=== PATIENT | male | born 1935 | race Caucasian/White ===

== ENCOUNTER 2017-07-12 22:32 | Inpatient (IN) | payer MEDICARE, OTHER ==
[~2017-07-12] VITALS: Ht 167.6 cm; Wt 72.6 kg
[2017-07-12] MEDS ORDERED: ASPI81TA31 PO (22:55)
[2017-07-12] MEDS ORDERED: BACL10TA PO (22:55)
[2017-07-12] MEDS ORDERED: ATOR20TA PO (22:55)
[2017-07-12] MEDS ORDERED: CARV6.252 PO (22:55)
[2017-07-12] MEDS ORDERED: FURO40TA5 PO (22:55)
[2017-07-12] MEDS ORDERED: METH5TAB2 PO ×2 (22:55)
[2017-07-12] MEDS ORDERED: LISI-603 PO (22:55)
[2017-07-12] MEDS ORDERED: POLY119P2 PO (22:55)
[2017-07-12] MEDS ORDERED: ALBU18HF2 INH (22:55)
[2017-07-12] MEDS ORDERED: OMEP20CA10 PO (22:55)
[2017-07-12] MEDS ORDERED: MAGN400C PO (22:55)
[2017-07-12] MEDS ORDERED: FERR325T28 PO (22:55)
[2017-07-12] MEDS ORDERED: CALC650T29 PO (22:55)
[2017-07-12] MEDS ORDERED: ALEN70TA45 PO (22:55)
[2017-07-12] MEDS ORDERED: DOCU100C36 PO (22:55)
--- NOTE | 2017-07-12 23:00 | NUR ---
pt reports pulling on dry skin on right lateral heel - area presents with dime sized wound - pinkish superficial area noted - sensative to touch - dressing placed
[2017-07-12] MEDS ORDERED: ONDANSETRON 4 MG/2 ML VIAL IV ONE (23:30)
[2017-07-12 23:53] LABS: BASOPHILS # (AUTO) 0.1 K/uL (0.0-8.0); BASOPHILS % (AUTO) 0.7 % (0.0-2.0); EOSINOPHILS # (AUTO) 0.2 K/uL (0.0-0.7); EOSINOPHILS % (AUTO) 1.9 % (0.0-7.0); HEMATOCRIT 34.5 % (36.7-47.1); HEMOGLOBIN 11.4 g/dL (12.5-16.3); LYMPHOCYTES # (AUTO) 2.3 K/uL (20.0-40.0); LYMPHOCYTES % (AUTO) 24.5 % (20.5-51.5); MEAN CORPUSCULAR HEMOGLOBIN 31.5 uug (23.8-33.4); MEAN CORPUSCULAR HGB CONC 33 g/dL (32.5-36.3); MEAN CORPUSCULAR VOLUME 95.2 fL (73.0-96.2); MONOCYTES # (AUTO) 0.9 K/uL (2.0-10.0); MONOCYTES % (AUTO) 9.1 % (0.0-11.0); NEUTROPHILS % (AUTO) 63.8 % (38.5-71.5); PLATELET COUNT (AUTO) 235 K/uL (152-348); RED BLOOD CELL COUNT(AUTO) 3.63 MIL/uL (4.06-5.63); WHITE BLOOD COUNT (AUTO) 9.4 K/uL (3.6-10.2)
[2017-07-13] LABS: ALANINE AMINOTRANSFERASE 16 U/L (16-63); ALKALINE PHOSPHATASE 88 U/L (50-136); ASPARTATE AMINOTRANSFERASE 22 U/L (15-37); BILIRUBIN,DIRECT 0.1 mg/dL (0.0-0.2); BILIRUBIN,TOTAL 0.5 mg/dL (0.2-1.0); CARBON DIOXIDE 31 mmol/L (21-32); CHLORIDE 107 mmol/L (98-107); CREATININE 1.9 mg/dL (0.6-1.3); GLUCOSE 109 mg/dL (74-106); LIPASE 91 U/L (73-393); POTASSIUM 4.1 mmol/L (3.5-5.1); UREA NITROGEN, BLOOD 37 mg/dL (7-18)
[2017-07-13 00:35] LABS: *BILIRUBIN,URIN NEGATIVE (NEGATIVE); *BLOOD, URINE NEGATIVE (NEGATIVE); *CLARITY,URINE CLEAR (CLEAR); *COLOR,URINE YELLOW (YELLOW); *KETONES,URINE NEGATIVE (NEGATIVE); *PROTEIN,URINE NEGATIVE (NEGATIVE); *UROBILINOGEN,URINE 0.2 E.U./dl (NORMAL); LEUKOCYTE ESTERASE ,URINE NEGATIVE (NEGATIVE); NITRITE, URINE NEGATIVE (NEGATIVE); PH,URINE 5.5 (5.0-8.0); UGLUCOSE NEGATIVE (NEGATIVE)
[2017-07-13] MEDS ORDERED: IV NORMAL SALINE 250 ML BAG IV ONE (00:45)
[2017-07-13] MEDS ORDERED: ONDANSETRON 4 MG/2 ML VIAL ONE (00:46)
[2017-07-13 00:59] LABS: BACTERIA,URINE NONE SEEN /HPF (NONE SEEN); RBC,URINE 0-3 /HPF (0-3); SQUAMOUS EPITHELIAL CELL,UR FEW /HPF (NONE SEEN); WBC,URINE 0-3 /HPF (0-3)
[2017-07-13] MEDS ORDERED: IV 1/2NS 1000 ML 1,000 ML IV PRN (01:22)
[2017-07-13] MEDS ORDERED: Z GUARD REMEDY PASTE 57 GM TUBE TOP PRN (01:30)
[2017-07-13] MEDS ORDERED: ONDANSETRON 4 MG/2 ML VIAL IV PRN (01:30)
[2017-07-13] MEDS ORDERED: ACETAMINOPHEN 325 MG TABLET PO PRN (01:30)
[2017-07-13] MEDS ORDERED: ALBUTEROL SULFATE 8 GM HFA.AER.AD INH PRN (01:30)
[2017-07-13] MEDS ORDERED: MAGNESIUM HYDROXIDE 30 ML LIQUID UDC PO PRN (01:30)
--- NOTE | 2017-07-13 02:30 | NUR ---
Joel redding in ED - 07/13/17 at 0247 by [id number] NOZZLE WORKER evaluated pt., not placing pt on hold
--- NOTE | 2017-07-13 02:40 | NUR ---
pt report provided to nurse Valentin - pt continues restful - vs and ns same - all sites consistant
[2017-07-13 04:00] VITALS: BP 126/73
--- NOTE | 2017-07-13 04:35 | NUR ---
CLINICAL NURSING NOTES: pt is newly admitted from ED with a Dx: Nausea and FLORIN. A&O X 4, on 2 L O2 NC, sating well. VSS. denies pain. 0.45% NS is running @ 75 ml/hr. pt is able to walk with walker and one person assist. skin checked( see wound documentation). fall risk precautions are implemented. will cont to monitor for any changes in the patient's condition.
--- NOTE | 2017-07-13 06:42 | NUR ---
END OF SHIFT SUMMERY: Pt is resting in bed, no acute distress noted. denies pain. no episodes of N/V . fall precautions are implemented. all needs attended. Will cont to monitor and endorse pt to the next nurse.
[2017-07-13] MEDS: CARVEDILOL 6.25 MG TABLET PO SCH ×2 (09:00→17:56)
[2017-07-13] MEDS ORDERED: Medication Not On Formulary EA (Omeprazole 20 MG) PO SCH (09:00)
[2017-07-13] MEDS ORDERED: MAGNESIUM OXIDE 400 MG TABLET PO SCH (09:17)
[2017-07-13] MEDS: BACLOFEN 10 MG TABLET PO SCH ×3 (09:59→17:45)
[2017-07-13] MEDS: CALCIUM CARBONATE 600 MG TABLET PO SCH ×2 (09:59→17:45)
[2017-07-13] MEDS: ASPIRIN 81 MG TAB.CHEW PO SCH (10:00)
[2017-07-13] MEDS: PANTOPRAZOLE SODIUM 40 MG TABLET.DR PO SCH (10:41)
[2017-07-13 11:12] VITALS: BP 106/46
--- NOTE | 2017-07-13 12:12 | NUR ---
SBAR report received near bedside, board updated. Pt assessed to be in no acute distress of SOB at this time, no difficulty breathing on 2 L O2 NC. Pt alert and oriented x4. Pt compliant with all routine morning medications. Plan for today discussed. Visited with nurse case manager, and daughter Edna spoken to via phone r/t plan of care. Call light and personal items within reach. All safety and comfort measures met. Will continue to monitor.
--- NOTE | 2017-07-13 12:57 | NUR ---
Pt seen by MD, no new orders. Plan of care discussed with Pt.
[2017-07-13] MEDS: METHADONE HCL 10 MG TABLET PO SCH ×2 (13:05→20:47)
[2017-07-13] MEDS ORDERED: FUROSEMIDE 40 MG/4 ML VIAL IV ONE (13:15)
[2017-07-13 13:36] LABS: BASOPHILS # (AUTO) 0.1 K/uL (0.0-8.0); BASOPHILS % (AUTO) 0.9 % (0.0-2.0); EOSINOPHILS # (AUTO) 0.2 K/uL (0.0-0.7); HEMATOCRIT 33.1 % (36.7-47.1); LYMPHOCYTES # (AUTO) 1.9 K/uL (20.0-40.0); LYMPHOCYTES % (AUTO) 23.1 % (20.5-51.5); MEAN CORPUSCULAR HEMOGLOBIN 31.7 uug (23.8-33.4); MEAN CORPUSCULAR HGB CONC 33 g/dL (32.5-36.3); MEAN CORPUSCULAR VOLUME 95.1 fL (73.0-96.2); MONOCYTES # (AUTO) 0.8 K/uL (2.0-10.0); MONOCYTES % (AUTO) 9.4 % (0.0-11.0); NEUTROPHILS # (AUTO) 5.3 K/uL (1.8-8.9); NEUTROPHILS % (AUTO) 63.6 % (38.5-71.5); PLATELET COUNT (AUTO) 214 K/uL (152-348); RED BLOOD CELL COUNT(AUTO) 3.48 MIL/uL (4.06-5.63); WHITE BLOOD COUNT (AUTO) 8.3 K/uL (3.6-10.2)
[2017-07-13 13:39] LABS: CARBON DIOXIDE 31 mmol/L (21-32); CHLORIDE 105 mmol/L (98-107); CREATININE 1.7 mg/dL (0.6-1.3); GLUCOSE 116 mg/dL (74-106); POTASSIUM 4.1 mmol/L (3.5-5.1); UREA NITROGEN, BLOOD 33 mg/dL (7-18)
[2017-07-13] MEDS: HEPARIN SODIUM,PORCINE 5,000 UNITS/ML VIAL SQ SCH ×2 (14:29→20:48)
[2017-07-13 15:19] VITALS: BP 117/78
[2017-07-13 20:38] VITALS: BP 105/55
[2017-07-13] MEDS: ATORVASTATIN 20 MG TABLET PO SCH (20:39)
[2017-07-13] MEDS: DOCUSATE SODIUM 100 MG CAPSULE PO SCH (20:39)
[2017-07-14] MEDS: HYDROCODONE/APAP 5-325MG TABLET PO PRN ×2 (01:18→12:44)
--- NOTE | 2017-07-14 05:20 | NUR ---
NORCO WAS GIVEN FOR C/O RIGHT FOOT PAIN, AND WAS EFFECTIVE.
[2017-07-14] MEDS: PANTOPRAZOLE SODIUM 40 MG TABLET.DR PO SCH (06:04)
[2017-07-14 06:55] VITALS: BP 127/58
[2017-07-14 06:59] LABS: BASOPHILS # (AUTO) 0.1 K/uL (0.0-8.0); BASOPHILS % (AUTO) 0.7 % (0.0-2.0); EOSINOPHILS # (AUTO) 0.5 K/uL (0.0-0.7); EOSINOPHILS % (AUTO) 5.5 % (0.0-7.0); HEMATOCRIT 29.8 % (36.7-47.1); MEAN CORPUSCULAR HEMOGLOBIN 31.8 uug (23.8-33.4); MEAN CORPUSCULAR HGB CONC 34 g/dL (32.5-36.3); MEAN CORPUSCULAR VOLUME 94.9 fL (73.0-96.2); MONOCYTES # (AUTO) 0.8 K/uL (2.0-10.0); MONOCYTES % (AUTO) 9.6 % (0.0-11.0); NEUTROPHILS # (AUTO) 4.2 K/uL (1.8-8.9); NEUTROPHILS % (AUTO) 49.2 % (38.5-71.5); PLATELET COUNT (AUTO) 183 K/uL (152-348); RED BLOOD CELL COUNT(AUTO) 3.14 MIL/uL (4.06-5.63); WHITE BLOOD COUNT (AUTO) 8.6 K/uL (3.6-10.2)
[2017-07-14 07:12] LABS: CARBON DIOXIDE 33 mmol/L (21-32); CHLORIDE 106 mmol/L (98-107); CHOLESTEROL 100 mg/dL (<200); CREATININE 1.5 mg/dL (0.6-1.3); GLUCOSE 92 mg/dL (74-106); HDL CHOLESTEROL 40 mg/dL (40-60); MAGNESIUM 2.1 mg/dL (1.8-2.4); PHOSPHOROUS 3.4 mg/dL (2.5-4.9); POTASSIUM 4.2 mmol/L (3.5-5.1); TRIGLYCERIDES 92 MG/DL (30-150); UREA NITROGEN, BLOOD 33 mg/dL (7-18)
[2017-07-14 07:30] LABS: THYROID STIMULATING HORMONE 1.425 mIU/mL (0.358-3.740)
--- NOTE | 2017-07-14 08:30 | NUR ---
AWAKE COOPERATE WELL NO PAIN OR SOB ,ON FALL AND ASPIRATION PRECAUTION BED ALARM ON AND CALL PATEL IN REACH
[2017-07-14] MEDS: CALCIUM CARBONATE 600 MG TABLET PO SCH ×2 (08:51→17:01)
[2017-07-14] MEDS: BACLOFEN 10 MG TABLET PO SCH ×3 (08:51→17:01)
[2017-07-14] MEDS: METHADONE HCL 10 MG TABLET PO SCH ×2 (08:52→21:05)
[2017-07-14] MEDS: ASPIRIN 81 MG TAB.CHEW PO SCH (08:53)
[2017-07-14] MEDS: CARVEDILOL 6.25 MG TABLET PO SCH ×2 (08:53→17:00)
[2017-07-14] MEDS: HEPARIN SODIUM,PORCINE 5,000 UNITS/ML VIAL SQ SCH ×2 (08:55→21:07)
[2017-07-14 11:40] VITALS: BP 120/60
--- NOTE | 2017-07-14 12:00 | NUR ---
DR RAINES SEE PATIENT AND LAB RESULT THIS AM
--- NOTE | 2017-07-14 14:00 | NUR ---
DR GUIDO Bryant WAS CALL REGARDING PATIENT REQUEST ANXIETY MED AND ORDER RECIEVED
[2017-07-14] MEDS ORDERED: ALPRAZOLAM 0.25 MG TABLET PO PRN (14:15)
[2017-07-14 15:42] VITALS: BP 105/53
--- NOTE | 2017-07-14 17:30 | NUR ---
STABLE HEMODYNAMIC STATUS ,PAIN UNDER CONTROL SAFETY MEASURE PROVIDED CALL LIGHT IN REACH AND BED ALARM ON
[2017-07-14] MEDS: ALBUTEROL SULFATE 2.5 MG/3 ML NEBU NEB PRN (19:25)
--- NOTE | 2017-07-14 19:30 | NUR ---
PT ALERT AND ORIENTED IN BED. O2 2L NC WNL. NO DISTRESS NOTED. IV INTACT. CLEAN AND DRY. SAFETY MAINTAINED. CALL LIGHT WITHIN REACH. ALL NEEDS MET. WILL CONTINUE TO MONITOR.
[2017-07-14 20:47] VITALS: BP 135/47
[2017-07-14] MEDS: DOCUSATE SODIUM 100 MG CAPSULE PO SCH (21:04)
[2017-07-14] MEDS: ATORVASTATIN 20 MG TABLET PO SCH (21:05)
[2017-07-15 04:36] VITALS: BP 144/74
[2017-07-15] MEDS ORDERED: ALENDRONATE SODIUM 70 MG TABLET PO SCH (06:00)
[2017-07-15] MEDS: PANTOPRAZOLE SODIUM 40 MG TABLET.DR PO SCH (06:04)
[2017-07-15] MEDS: HYDROCODONE/APAP 5-325MG TABLET PO PRN (06:31)
--- NOTE | 2017-07-15 06:39 | NUR ---
PT ALERT AND ORIENTED IN BED. HOB ELEVATED. PT ON 2L NC. PAIN MEDICATION GIVEN ORDERED FOR BACK PAIN. SAFETY MAINTAINED. CALL LIGHT WITHIN REACH.
[2017-07-15] MEDS: ALBUTEROL SULFATE 2.5 MG/3 ML NEBU NEB PRN ×2 (06:55→14:03)
--- NOTE | 2017-07-15 08:30 | NUR ---
AWAKE ALERT COOPERATE WELL NO PAIN OR SOB EAT BREAKFAST WELL ON FALL PRECAUTION BED ALARM ON AND CALL LIGHT IN REACH
[2017-07-15] MEDS: BACLOFEN 10 MG TABLET PO SCH ×3 (08:34→16:37)
[2017-07-15] MEDS: ASPIRIN 81 MG TAB.CHEW PO SCH (08:35)
[2017-07-15] MEDS: CALCIUM CARBONATE 600 MG TABLET PO SCH ×2 (08:35→16:36)
[2017-07-15] MEDS: METHADONE HCL 10 MG TABLET PO SCH ×2 (08:35→20:57)
[2017-07-15] MEDS: CARVEDILOL 6.25 MG TABLET PO SCH ×2 (08:35→16:37)
[2017-07-15] MEDS: HEPARIN SODIUM,PORCINE 5,000 UNITS/ML VIAL SQ SCH ×2 (08:37→21:11)
[2017-07-15 11:32] VITALS: BP 120/54
[2017-07-15] MEDS: methylPREDNISolone SOD SUCC 40 MG/ML VIAL IV SCH ×2 (12:14→23:10)
[2017-07-15] MEDS: AZITHROMYCIN 250 MG TABLET PO SCH (13:45)
[2017-07-15 15:53] VITALS: BP 144/54
--- NOTE | 2017-07-15 18:00 | NUR ---
HEMODYNAMIC STATUS STABLE NO ACUTE DISTRESS SAFETY MEASURE PROVIDED CALL LIGHT IN REACH
--- NOTE | 2017-07-15 19:40 | NUR ---
Received patient in bed, on semi fowlers position and was watching TV. Verbally responsive and bale to make needs known. Vital signs taken and recorded WNL. Breathing even and nonlabored. Pain level of 5/10, will give pain med. Heplock intact and no s/s of redness or dislodged. Safety measures provided and on bed alarm. Reminded pt. to use call light, and placed it within his reach. Will monitor the patient.
[2017-07-15 20:18] VITALS: BP 124/50
[2017-07-15] MEDS: DOCUSATE SODIUM 100 MG CAPSULE PO SCH (20:51)
[2017-07-15] MEDS: ATORVASTATIN 20 MG TABLET PO SCH (20:51)
[2017-07-15] MEDS: MUPIROCIN 2% OINT 22 GM TUBE TP SCH (21:00)
[2017-07-16 00:10] VITALS: BP 136/62
[2017-07-16 04:00] VITALS: BP 126/61
[2017-07-16] MEDS: methylPREDNISolone SOD SUCC 40 MG/ML VIAL IV SCH ×2 (05:51→13:04)
[2017-07-16 06:13] LABS: HEMATOCRIT 31.6 % (36.7-47.1); HEMOGLOBIN 10.5 g/dL (12.5-16.3); LYMPHOCYTES # (AUTO) 0.7 K/uL (20.0-40.0); LYMPHOCYTES % (AUTO) 9.8 % (20.5-51.5); MEAN CORPUSCULAR HEMOGLOBIN 31.7 uug (23.8-33.4); MEAN CORPUSCULAR HGB CONC 33 g/dL (32.5-36.3); MEAN CORPUSCULAR VOLUME 95.4 fL (73.0-96.2); MONOCYTES # (AUTO) 0.1 K/uL (2.0-10.0); NEUTROPHILS # (AUTO) 6.1 K/uL (1.8-8.9); NEUTROPHILS % (AUTO) 89.2 % (38.5-71.5); PLATELET COUNT (AUTO) 189 K/uL (152-348); RED BLOOD CELL COUNT(AUTO) 3.31 MIL/uL (4.06-5.63); WHITE BLOOD COUNT (AUTO) 6.8 K/uL (3.6-10.2)
[2017-07-16 06:27] LABS: CARBON DIOXIDE 29 mmol/L (21-32); CHLORIDE 104 mmol/L (98-107); CREATININE 1.2 mg/dL (0.6-1.3); GLUCOSE 189 mg/dL (74-106); PHOSPHOROUS 2.5 mg/dL (2.5-4.9); POTASSIUM 4.4 mmol/L (3.5-5.1); UREA NITROGEN, BLOOD 28 mg/dL (7-18)
[2017-07-16] MEDS: PANTOPRAZOLE SODIUM 40 MG TABLET.DR PO SCH (06:36)
--- NOTE | 2017-07-16 07:21 | NUR ---
Pt. slept the entire shift. Able to make needs known. Kept clean and dry and comfortable. All due meds given. Vitals signs WNL. Breathing even and nonlabored. Denies of any pain or discomfort. Will endorse to AM shift nurse.
--- NOTE | 2017-07-16 08:00 | NUR ---
RECEIVED PATIENT IN BED AWAKE ALERT AND ORIENTED DENIES PAIN OR DISCOMFORTS AT THIS TIME REMAIN ON TELEMETRY MONITORING SINUS RHYTHM WITH NO ECTOPY.ON O2 AT 2L/M WITH NO SHORTNESS OF BREATH AT THIS TIME MADE COMFORTABLE AND WILL CONTINUE TO OBSERVE.
[2017-07-16] MEDS: CALCIUM CARBONATE 600 MG TABLET PO SCH ×2 (08:53→16:30)
[2017-07-16] MEDS: BACLOFEN 10 MG TABLET PO SCH ×3 (08:54→16:30)
[2017-07-16] MEDS: ASPIRIN 81 MG TAB.CHEW PO SCH (08:54)
[2017-07-16] MEDS: METHADONE HCL 10 MG TABLET PO SCH (08:54)
[2017-07-16] MEDS: CARVEDILOL 6.25 MG TABLET PO SCH ×2 (09:00→16:32)
[2017-07-16] MEDS: CLOTRIMAZOLE 1% CREAM 30 GM TUBE TOP SCH ×2 (09:27→16:33)
[2017-07-16] MEDS: MUPIROCIN 2% OINT 22 GM TUBE TP SCH (09:27)
[2017-07-16] MEDS: HEPARIN SODIUM,PORCINE 5,000 UNITS/ML VIAL SQ SCH (09:29)
[2017-07-16] MEDS: ALBUTEROL SULFATE 2.5 MG/3 ML NEBU NEB PRN ×2 (10:09→15:34)
[2017-07-16 11:06] VITALS: BP 159/77
[2017-07-16] MEDS: AZITHROMYCIN 250 MG TABLET PO SCH (13:04)
[2017-07-16] MEDS ORDERED: AZIT250T13 PO (13:32)
[2017-07-16] MEDS ORDERED: PANT40TA2 PO (13:32)
[2017-07-16] MEDS ORDERED: ALBU2.5V7 NEB (13:32)
[2017-07-16] MEDS ORDERED: PRED20TA PO (13:32)
[2017-07-16] MEDS ORDERED: PRED50TA PO (13:32)
[2017-07-16] MEDS ORDERED: ALPR0.25 PO (13:32)
[2017-07-16 15:15] VITALS: BP 123/60
--- NOTE | 2017-07-16 15:43 | NUR ---
ORDER TO DISCHARGE PATIENT TO [facility] RECEIVED AND CARRIED OUT PATIENT AWARE WAS NOTIFIED BY THE [employer] INSTRUCTOR PATIENT IS NOT HAPPY WITH THE DISCHARGE PLANS AT THIS TIME WILL PREP HIM TO BE DISCHARGED.
[2017-07-16 16:32] VITALS: BP 125/60
--- NOTE | 2017-07-16 16:35 | NUR ---
CALLED ESTELA DELUCA REPORT GIVEN TO GUSTAVO FOR CONTINUING CARE PATIENT WILL CONTINUE ON ZITHROMAX FOR 5 MORE DAYS AND WILL START PREDNISONE TAPERING DOSES AND HE EXPRESSED UNDERSTANDING.
--- NOTE | 2017-07-16 17:47 | NUR ---
PATIENT DISCHARGED PICKED UP BY [facility] IN SATISFACTORY CONDITION WITH DISCHARGE INSTRUCTIONS AND ALL HIS PERSONAL BELONGINGS INCLUDING HIS W/CHAIR/WALKER.PATIENT IS AWAKE ALERT AND ORIENTED WITH O2 AT 2L/M NOT IN DISTRESS AT THIS TIME.
== END 2017-07-16 17:50 | DRG 682 ==
LOC: ER 22:35 → MED 07-13 01:00 → TELE 07-15 12:24 → MED 07-16 11:15
PROVIDERS: ADMIT Nurse Practitioner Acute Care; ATTEND Internal Medicine
DX: N17.0 Acute kidney failure with tubular necrosis (principal); I50.23 Acute on chronic systolic (congestive) heart failure; E87.0 Hyperosmolality and hypernatremia; E11.621 Type 2 diabetes mellitus with foot ulcer; J44.1 Chronic obstructive pulmonary disease with (acute) exacerbation; R13.10 Dysphagia, unspecified; I13.0 Hypertensive heart and chronic kidney disease with heart failure and stage 1 through stage 4 chronic kidney disease, or unspecified chronic kidney disease; L97.419 Non-pressure chronic ulcer of right heel and midfoot with unspecified severity; D63.8 Anemia in other chronic diseases classified elsewhere; B35.3 Tinea pedis; B35.1 Tinea unguium; E78.5 Hyperlipidemia, unspecified; E86.0 Dehydration; N18.9 Chronic kidney disease, unspecified; G89.4 Chronic pain syndrome; K21.9 Gastro-esophageal reflux disease without esophagitis; L60.0 Ingrowing nail; M81.0 Age-related osteoporosis without current pathological fracture; R53.1 Weakness; K29.70 Gastritis, unspecified, without bleeding; J06.9 Acute upper respiratory infection, unspecified; I87.8 Other specified disorders of veins; Z79.84 Long term (current) use of oral hypoglycemic drugs; Z79.899 Other long term (current) drug therapy; Z99.81 Dependence on supplemental oxygen
CPT/HCPCS: 36415; 71010; 76770; 83690; 83735; 84100; 84443; 85025; 87040; 94640; 97116; 97165; 97530; A4663; J1644; J1940; J2405; J2920; J3490; J7050; Q0144